=== PATIENT | male | born 1950 | race African-American/Black ===

== ENCOUNTER 2018-11-02 05:32 | Emergency (ER) | payer MEDICARE ==
[~2018-11-02] VITALS: Ht 172.7 cm; Wt 137.0 kg
[2018-11-02] MEDS ORDERED: LIDOCAINE HCL 1% 20ML VIAL (Pyxis) INJ INFIL ONE (06:15)
[2018-11-02] MEDS ORDERED: BACITRACIN ZINC OINT UDPKT TOP ONE (07:30)
[2018-11-02] MEDS ORDERED: TETANUS, DIPHTHERIA, PERTUSSIS VAC/PF 0.5ML (>7YR OLD) IM ONE (07:30)
[2018-11-02 08:41] VITALS: BP 152/100
== END 2018-11-02 08:42 | disposition home or self-care (01) ==
LOC: ER 05:32
DX: S01.81XA Laceration without foreign body of other part of head, initial encounter (principal); F17.200 Nicotine dependence, unspecified, uncomplicated; F12.10 Cannabis abuse, uncomplicated; I11.0 Hypertensive heart disease with heart failure; I50.9 Heart failure, unspecified; W18.39XA Other fall on same level, initial encounter; Y93.89 Activity, other specified; Y92.89 Other specified places as the place of occurrence of the external cause; Y99.8 Other external cause status
CPT/HCPCS: 12013; 70450; 70486; 72125; 90471; 90715; 99284; 99406; J3490